=== PATIENT | male | born 1945 | race Caucasian/White ===

== ENCOUNTER 2016-12-15 03:08 | Inpatient (IN) | payer MEDICARE ==
[~2016-12-15] VITALS: Ht 177.8 cm; Wt 79.2 kg
--- NOTE | 2016-12-15 19:08 | ER ---
ADMIT: 12/15/2016 RM/LOC: 517 [facility] MR#: [id number] [address] [address] ALEX RIVAS [address] [place] [address] Emergency Room Report SEX: M AGE: 71 : 1945 DATE: 12/15/2016 The patient is a 71-year-old male with past medical history of prostate cancer and bone metastasis, who came to the ER with chief complaint of weakness, presyncope, cough, and sore throat for today. The patient states he feels very congested and short of breath for 1 day. The patient states that if he felt very dizzy and he was very close to passing out and he did not pass out and he did not hit the ground. The patient denies any sick contact or similar symptoms at home and denies any chest pain. The patient also complains of white increased sputum. On physical examination, the patient was afebrile in the ER. Alert and oriented, in mild distress. Head and neck were noncontributory. The patient's lung has some crackles in the right lower lung with some wheezing bilaterally. Abdomen is soft. The rest of the physical examination is noncontributory. The patient had no lower extremity swelling. Chest x-ray was questionable with right lung pneumonia. The patient's white count was 12.8 with hemoglobin of 10.9, and platelet of 230,000. The patient had sodium of 126 with potassium of 3.9 and glucose of 140. Creatinine was 1.0 and lactate was 0.9. D-dimer was mildly elevated at 0.77 for possible cancer versus pulmonary embolus versus other causes. CT angiogram did not show any PE and was positive for right lung pneumonia. Concerning the patient's condition for hypovolemic hyponatremia and isovolumic hypernatremia are at the top of our differentials. Knowing the patient has a history of cancer. The patient received 500 mL of normal saline. The patient was started on Levaquin for pneumonia. The patient was admitted to Internal Medicine for further followups and treatment of hyponatremia and pneumonia. Vladislav Vaz MD/ arnie JOB #: [id number] CC: Jaleel Delgado MD, Attending Physician Jaleel Delgado MD, Family Physician
--- NOTE | 2016-12-17 11:36 | HP ---
ADMIT: 12/15/2016 RM/LOC: 517 [facility] MR#: [id number] [address] [facility] [address] [place] [id number] ALEX RIVAS [address] [place] [address] History and Physical SEX: M AGE: 71 : 1945 DATE OF SERVICE: CHIEF COMPLAINT/HISTORY OF PRESENT ILLNESS: A 71-year-old male presented to the emergency room complaining of increased cough and dyspnea over the last few days. He was seen and x-ray was suspicious for an acute pneumonia. He has febrile and he was admitted for further treatment. PREVIOUS MEDICAL HISTORY: Generally, his health has been fair. He has had prostate cancer since 2006. He is followed by the oncologist. The patient is not a smoker at this time. He did smoke for many years, but quit approximately 30 years ago. MEDICATIONS: Include: 1. Bicalutamide 50 mg daily. 2. Ibuprofen 600 mg q.i.d. p.r.n. 3. Multivitamin daily. 4. Calcium plus vitamin D 600 mg b.i.d. ALLERGIES: NONE. FAMILY HISTORY: Includes cancer, diabetes, and stroke. No heart disease. SOCIAL HISTORY: See above. The patient drinks occasional beer socially. REVIEW OF SYSTEMS: HEENT: The patient wears glasses. He has had no recurring sinus headaches, glaucoma, or cataracts or fever. CARDIORESPIRATORY: There is no history of chest pains, dyspnea, hemoptysis, previous pneumonia episodes. GI: No nausea, vomiting, constipation, bloody stools, or diarrhea. : No hematuria or dysuria. He has had the previously mentioned prostate cancer and is seen twice a year by the oncologist. MUSCULOSKELETAL: No back pain, arthritis, or gout. PHYSICAL EXAMINATION: VITAL SIGNS: Blood pressure is 140/69, respirations 20, pulse is 80 and regular, temperature 100.1 degrees. GENERAL: The patient is a well-nourished, well-developed male in no acute distress. He is alert, cooperative, oriented x3. HEENT: Head - normocephalic without exostoses. MAGALY. Throat within normal limits. NECK: Neck veins not distended. Thyroid not enlarged. CHEST: Rales bilaterally. HEART: Regular rhythm with no murmur heard. No clinical evidence of ADMIT: 12/15/2016 RM/LOC: 517 [facility] MR#: [id number] [address] [address] ALEX RIVAS [address] [place] [address] History and Physical SEX: M AGE: 71 : 1945 cardiomegaly. ABDOMEN: Soft, nontender. Liver is not enlarged. Spleen is not palpable. No abnormal masses are palpated. Femoral pulses are strong and equal bilaterally. GENITALIA: Normal. EXTREMITIES: No cyanosis, clubbing or edema. ASSESSMENT: 1. Early pneumonia. 2. Prostate cancer. PLAN: Intravenous antibiotics and monitor oxygen levels. Jaleel Delgado MD/ arnie JOB #: [id number] CC: Jaleel Delgado, Attending Physician Jaleel Delgado, Family Physician
[2016-12-18] MEDS ORDERED: DAILY MULTIPLE1 EAC1 PO (13:38)
[2016-12-18] MEDS ORDERED: IBUPROFEN600 MG PO (13:38)
[2016-12-18] MEDS ORDERED: CASODEX50 MG PO (13:38)
[2016-12-18] MEDS ORDERED: CALCIUM 600 +1 EA16 PO (13:38)
[2016-12-18] MEDS ORDERED: LEVAQUIN DPS500 MG PO (13:39)
--- NOTE | 2016-12-24 11:23 | DS ---
ADMIT: 12/15/2016 RM/LOC: 517 [facility] MR#: [id number] [address] [address] ALEX RIVAS [address] [place] [address] Discharge Summary SEX: M AGE: 71 : 1945 ADMISSION DATE: 12/15/2016 DISCHARGE DATE: 12/17/2016 This 71-year-old male presented to the emergency room with deep cough and sputum production. The x-ray showed a possible early pneumonia. He was started on Rocephin 1 g IV daily and Levaquin 750 mg IV daily. Over the next few days, the patient improved considerably, his cough lessened, his lungs became much clearer, his temperature was afebrile at the time of discharge. He had been up walking. He was anxious to go home. He was feeling much better. He is discharged. His Rocephin was discontinued. Levaquin will be given 500 mg once daily for another 5 days. He will be seen in the office in one week. FINAL DIAGNOSIS: 1. Pneumonia. 2. Prostate cancer. Jaleel Delgado MD/ vdg JOB #: [id number] CC: Jaleel Delgado MD, Attending Physician Jaleel Delgado MD, Family Physician
== END 2016-12-17 13:31 | disposition home or self-care (01) | DRG 194 ==
LOC: ER 03:08 → 5MS 06:30
DX: J18.9 Pneumonia, unspecified organism (principal); C79.51 Secondary malignant neoplasm of bone; C61 Malignant neoplasm of prostate; E87.1 Hypo-osmolality and hyponatremia; Z87.891 Personal history of nicotine dependence